=== PATIENT | female | born 1985 | race Caucasian/White ===

== ENCOUNTER 2021-02-01 21:12 | Emergency (ER) | payer MEDICAID ==
[~2021-02-01] VITALS: Ht 162.6 cm; Wt 64.0 kg
[2021-02-01 21:55] VITALS: BP 136/55
== END 2021-02-01 23:00 | disposition left against medical advice (07) ==
LOC: ER 21:23
DX: Z53.21 Procedure and treatment not carried out due to patient leaving prior to being seen by health care provider (principal)

== ENCOUNTER 2021-02-04 15:08 | Inpatient (IN) | payer MEDICAID ==
[~2021-02-04] VITALS: Ht 162.6 cm; Wt 68.7 kg
[2021-02-04] MEDS ORDERED: LORAZEPAM 2MG/ML CPJ IV ONE ×2 (17:15→20:00)
[2021-02-04 17:41] LABS: BASOPHILS % 0.1 % (0.0-2.0); HEMATOCRIT. 35.6 % (36.0-48.0); HEMOGLOBIN. 11.7 g/dL (12.0-16.0); LYMPHOCYTES % 16.8 % (20.0-50.0); MEAN CORPUSCULAR HEMOGLOBIN 23.7 pg (28.0-32.0); MEAN CORPUSCULAR VOLUME 72.3 fL (81.0-99.0); MEAN PLATELET VOLUME 7.2 fl (7.4-10.4); NEUTROPHILS % 78.1 % (40.0-76.0); PLATELET 336 x1000/uL (130-400); RED BLOOD CELL COUNT 4.93 mill/uL (4.2-5.4)
[2021-02-04 17:48] LABS: CHLORIDE 104 mEq/L (98-107)
[2021-02-04 18:09] LABS: PLATELET ESTIMATE NORMAL
[2021-02-04] MEDS ORDERED: SODIUM CHLORIDE 0.9% 1,000 ML IV ONE (19:15)
[2021-02-04] MEDS ORDERED: POTASSIUM CHLORIDE 20MEQ TABLET SR PO ONE (19:15)
[2021-02-04] MEDS ORDERED: FOLIC ACID 1 MG, THIAMINE HCL 100 MG, MVI, ADULT NO.1 10 ML in DEXTROSE 5% WATER 1,000 ML IV ONE (20:15)
[2021-02-04 23:30] VITALS: BP 156/109
[2021-02-04] MEDS ORDERED: LORAZEPAM 2MG/ML CPJ IV PRN (23:45)
[2021-02-04] MEDS ORDERED: ONDANSETRON HCL 4MG/2ML INJ IV PRN (23:45)
[2021-02-05] VITALS: BP 153/89
[2021-02-05 04:00] VITALS: BP 123/83
[2021-02-05] MEDS: PANTOPRAZOLE 40MG DR TABLET PO SCH (05:40)
[2021-02-05] MEDS: CHLORDIAZEPOXIDE 5 MG CAPSULE PO SCH ×3 (05:40→21:15)
[2021-02-05] MEDS ORDERED: CHLORDIAZEPOXIDE 5 MG CAPSULE PO SCH (06:00)
[2021-02-05 08:00] VITALS: BP 129/90
[2021-02-05] MEDS: MULTIVITAMINS,THER W-MINERALS TABLET PO SCH (08:15)
[2021-02-05] MEDS: THIAMINE HCL 100MG TABLET PO SCH (08:15)
[2021-02-05] MEDS: FOLIC ACID 1MG TABLET PO SCH (08:15)
[2021-02-05] MEDS: METOPROLOL TARTRATE 50MG TABLET PO SCH ×2 (08:16→21:00)
[2021-02-05 12:00] VITALS: BP 127/87
[2021-02-05 13:29] LABS: BASOPHILS % 0.2 % (0.0-2.0); EOSINOPHILS % 0.6 % (0.0-5.0); HEMATOCRIT. 32.4 % (36.0-48.0); HEMOGLOBIN. 10.5 g/dL (12.0-16.0); LYMPHOCYTES % 27.7 % (20.0-50.0); MEAN CORPUSCULAR HEMOGLOBIN 23.6 pg (28.0-32.0); MEAN CORPUSCULAR VOLUME 73.1 fL (81.0-99.0); MEAN PLATELET VOLUME 7.5 fl (7.4-10.4); MONOCYTES % 6.2 % (2.0-8.0); NEUTROPHILS % 65.3 % (40.0-76.0); PLATELET 317 x1000/uL (130-400); RED BLOOD CELL COUNT 4.44 mill/uL (4.2-5.4); RED CELL DISTRIBUTION WIDTH 22.4 % (11.6-14.6)
[2021-02-05 13:36] LABS: CHLORIDE 107 mEq/L (98-107)
[2021-02-05 16:00] VITALS: BP 116/75
[2021-02-05 20:00] VITALS: BP 109/68
[2021-02-06] VITALS: BP 136/90
[2021-02-06 04:00] VITALS: BP 136/90
[2021-02-06] MEDS: CHLORDIAZEPOXIDE 5 MG CAPSULE PO SCH (05:53)
[2021-02-06] MEDS: PANTOPRAZOLE 40MG DR TABLET PO SCH (05:53)
[2021-02-06 07:44] LABS: BASOPHILS % 0.1 % (0.0-2.0); EOSINOPHILS % 1.7 % (0.0-5.0); HEMATOCRIT. 32.3 % (36.0-48.0); HEMOGLOBIN. 10.6 g/dL (12.0-16.0); LYMPHOCYTES % 37.6 % (20.0-50.0); MEAN CORPUSCULAR HEMOGLOBIN 24.1 pg (28.0-32.0); MEAN CORPUSCULAR VOLUME 73.8 fL (81.0-99.0); MEAN PLATELET VOLUME 7.7 fl (7.4-10.4); MONOCYTES % 6.5 % (2.0-8.0); NEUTROPHILS % 54.1 % (40.0-76.0); PLATELET 309 x1000/uL (130-400); RED BLOOD CELL COUNT 4.38 mill/uL (4.2-5.4); RED CELL DISTRIBUTION WIDTH 21.9 % (11.6-14.6)
[2021-02-06 08:00] VITALS: BP 136/90
[2021-02-06 08:18] LABS: CHLORIDE 108 mEq/L (98-107)
[2021-02-06] MEDS: METOPROLOL TARTRATE 50MG TABLET PO SCH (08:26)
[2021-02-06] MEDS: MULTIVITAMINS,THER W-MINERALS TABLET PO SCH (08:26)
[2021-02-06] MEDS: FOLIC ACID 1MG TABLET PO SCH (08:26)
[2021-02-06] MEDS: THIAMINE HCL 100MG TABLET PO SCH (08:26)
[2021-02-06 10:46] VITALS: BP 124/82
[2021-02-07] MEDS ORDERED: FAMOTIDINE 20MG TABLET PO SCH (09:00)
== END 2021-02-06 12:20 | disposition home or self-care (01) | DRG 425 ==
LOC: ER 15:08 → MICUSO 20:33 → 7EST 22:54
PROVIDERS: ADMIT Internal Medicine; ATTEND Internal Medicine
DX: E87.6 Hypokalemia (principal); F10.139 Alcohol abuse with withdrawal, unspecified; F41.9 Anxiety disorder, unspecified; Y90.9 Presence of alcohol in blood, level not specified; Z71.41 Alcohol abuse counseling and surveillance of alcoholic
CPT/HCPCS: 36415; 80048; 85025; 93005; 99285; J2060; J3411; J3490; J7030; J7070